=== PATIENT | male | born 1960 | race Caucasian/White ===

== ENCOUNTER 2018-10-16 13:51 | Emergency (ER) | payer OTHER ==
[~2018-10-16] VITALS: Ht 182.9 cm; Wt 115.9 kg
[~2018-10-16 13:51] MED LIST: ADV250 IH; ALBU8HFA4 IH; AMOX-462 PO; BECL8.7A5 IH; CLON1 PO; MONT10TA24 PO; OMEP20CA4 PO; PARO10TA89 PO; PRAV20TA4 PO; QUET400T PO; SALMH IH; [UNRECOGNIZED DRUG - CODE] PO
[2018-10-16 13:53] VITALS: BP 130/90
[2018-10-16 14:05] LABS: GLUCOSE,POINT OF CARE 108 MG/DL (70-110)
== END 2018-10-16 16:13 | disposition left against medical advice (07) ==
LOC: EMS 13:53
DX: R42 Dizziness and giddiness (principal); Z53.21 Procedure and treatment not carried out due to patient leaving prior to being seen by health care provider

== ENCOUNTER 2019-04-24 11:58 | Emergency (ER) | payer OTHER ==
[~2019-04-24] VITALS: Ht 182.9 cm; Wt 120.5 kg
[~2019-04-24 11:58] MED LIST changes: -CLON1 PO; +CLON1TAB13 PO
[2019-04-24 14:33] VITALS: BP 166/99
== END 2019-04-24 14:42 | disposition home or self-care (01) ==
LOC: EMS 11:58
DX: S93.691A Other sprain of right foot, initial encounter (principal); E11.9 Type 2 diabetes mellitus without complications; I10 Essential (primary) hypertension; F32.9 Major depressive disorder, single episode, unspecified; Z79.899 Other long term (current) drug therapy; Z88.2 Allergy status to sulfonamides; W22.8XXA Striking against or struck by other objects, initial encounter; Y93.89 Activity, other specified; Y92.89 Other specified places as the place of occurrence of the external cause; Y99.8 Other external cause status

== ENCOUNTER 2020-12-26 19:41 | Emergency (ER) | payer OTHER ==
[~2020-12-26] VITALS: Ht 182.9 cm; Wt 111.4 kg
[~2020-12-26 19:41] MED LIST changes: -AMOX-462 PO; +CLON-595 PO; -CLON1TAB13 PO; -MONT10TA24 PO; +MONT10TA32 PO
[2020-12-26] MEDS ORDERED: CYCL10 PO (19:47)
[2020-12-26] MEDS ORDERED: ATOR10TA84 PO (19:47)
[2020-12-27] MEDS ORDERED: MORPHINE SULFATE 4 MG/ML SYRINGE IM ONE (00:15)
[2020-12-27 03:16] VITALS: BP 139/88
== END 2020-12-27 04:00 | disposition home or self-care (01) ==
LOC: EMS 19:43
DX: M54.5 Low back pain (principal); G89.29 Other chronic pain; K59.00 Constipation, unspecified; M19.90 Unspecified osteoarthritis, unspecified site; J44.9 Chronic obstructive pulmonary disease, unspecified; F32.9 Major depressive disorder, single episode, unspecified; E11.9 Type 2 diabetes mellitus without complications; I10 Essential (primary) hypertension; F17.210 Nicotine dependence, cigarettes, uncomplicated; Z88.1 Allergy status to other antibiotic agents
CPT/HCPCS: 72100; 96372; 99285; J2270; 99283

== ENCOUNTER 2021-06-26 16:20 | Inpatient (IN) | payer OTHER ==
[~2021-06-26] VITALS: Ht 175.3 cm; Wt 114.1 kg
[~2021-06-26 16:20] MED LIST changes: +ATOR10TA84 PO; +CYCL10TA17 PO; +MONT-40 PO; -MONT10TA32 PO; +SALM50DI2 IH; -SALMH IH
[2021-06-26] MEDS ORDERED: SODIUM CHLORIDE 0.9% 1,000 ML IV ONE ×2 (17:00→19:30)
[2021-06-26 17:20] LABS: ABG BASE EXCESS -2.5 mmol/L (-2.0-3.0); ABG HCO3 22.5 mmol/L (22.0-26.0); ABG METHEMOGLOBIN 0.1 % (0.0-1.5); ABG OXYGEN CONTENT 21.4 mL/dL (15.0-23.0); ABG OXYGEN SATURATION 91.9 % (95.0-98.0); ABG OXYHEMOGLOBIN 85.3 % (94.0-100.0); ABG PCO2 41 mmHg (35-45); ABG PH 7.369 (7.35-7.450); ABG TOTAL HEMOGLOBIN 17.9 G/dL (12.0-18.0); PO2, ARTERIAL BG 61.4 mmHg (79.0-87.0); SOURCE, BLOOD GAS ARTERIAL; TEMPERATURE, FAHRENHEIT, BG 99.4 FAHREN (96.0-98.6)
[2021-06-26 17:21] LABS: ABG CARBOXYHEMOGLOBIN 7.1 % (0.0-1.5); O2 DEVICE,BLOOD GAS VENTI MASK (ROOM AIR); SITE, BLOOD GAS RT RADIAL
[2021-06-26 17:37] LABS: BASOPHILS % (AUTO) 0.2 % (0.0-2.0); EOSINOPHILS % (AUTO) 0.2 % (1.0-6.0); HEMATOCRIT 49.8 % (41-53); HEMOGLOBIN 17.1 g/dL (13.5-17.5); LYMPHOCYTES # (AUTO) 1.8 K/uL (1.0-4.8); LYMPHOCYTES % (AUTO) 13.7 % (22.0-44.0); MEAN CORPUSCULAR HEMOGLOBIN 31.4 pg (26.0-34.0); MEAN CORPUSCULAR HGB CONC 34.3 G/dL (31.0-37.0); MEAN CORPUSCULAR VOLUME 92 fL (80-100); MONOCYTES # (AUTO) 2.1 K/uL (0.1-1.0); MONOCYTES % (AUTO) 16.7 % (2.0-9.0); NEUTROPHILS # (AUTO) 8.9 K/uL (1.8-7.7); NEUTROPHILS % (AUTO) 69.2 % (40.0-70.0); PLATELET COUNT (AUTO) 207 K/uL (150-450); RED BLOOD CELL COUNT(AUTO) 5.44 MIL/uL (4.50-5.90); RED CELL DISTRIBUTION WIDTH 13.7 % (11.5-14.5)
[2021-06-26 17:44] LABS: COVID AG,FIA SOURCE NASOPHARYNGEAL
[2021-06-26 17:49] LABS: ANION GAP 11 mmol/L (8-16); CALCIUM, TOTAL 8.1 mg/dL (8.8-10.5); CARBON DIOXIDE 26 mmol/L (22-29); CHLORIDE 103 mmol/L (98-107); CREATININE 2.13 mg/dL (0.60-1.30); GLOMERULAR FILTR. RATE CALC 32 mL/min (>60); GLUCOSE,RANDOM 212 mg/dL (70-110); SODIUM SERUM 140 mmol/L (136-145); UREA NITROGEN, BLOOD 28 mg/dL (7-18)
[2021-06-26 17:53] LABS: INR 1.1 (0.9-1.1); PROTHROMBIN TIME 11.2 SEC (9.4-11.6)
[2021-06-26 18:12] LABS: SALICYLATE 0.9 mg/dL (2.8-20.0)
[2021-06-26 18:25] LABS: AMMONIA 16 umol/L (11-32)
[2021-06-26 18:29] LABS: ALANINE AMINOTRANSFERASE 31 U/L (12-78); ALBUMIN 3.4 g/dL (3.4-5.0); ALKALINE PHOSPHATASE 81 U/L (46-116); ASPARTATE AMINOTRANSFERASE 15 U/L (15-37); BILIRUBIN,TOTAL 1.5 mg/dL (0.1-1.0); CREATINE KINASE, TOTAL ONLY 275 U/L (39-308); TOTAL PROTEIN, SERUM 6.4 g/dL (6.4-8.2)
[2021-06-26 18:40] LABS: APPEARANCE,URINE CLEAR (CLEAR); BILIRUBIN,URINE NEGATIVE (NEGATIVE); GLUCOSE, URINE (UA) >=1000 mg/dL (NEGATIVE); KETONES,URINE NEGATIVE (NEGATIVE); LEUKOCYTE ESTERASE ,URINE NEGATIVE (NEGATIVE); NITRATE,URINE NEGATIVE (NEGATIVE); OCCULT BLOOD,URINE NEGATIVE (NEGATIVE); PH,URINE 5.5 (5.0-8.0); PROTEIN,URINE SEE CONFIRM (NEGATIVE); UROBILINOGEN,URINE 0.2 mg/dL (<=1.0)
[2021-06-26 18:44] LABS: AMPHET/METH SCREEN,URINE NEGATIVE (NEGATIVE); BARBITURATE SCREEN, URINE NEGATIVE (NEGATIVE); BENZODIAZEPINES SCREEN,URINE NEGATIVE (NEGATIVE); CANNABINOID SCREEN,URINE NEGATIVE (NEGATIVE); COCAINE SCREEN,URINE NEGATIVE (NEGATIVE); METHADONE SCREEN, URINE NEGATIVE (NEGATIVE); OPIATE SCREEN,URINE NEGATIVE (NEGATIVE)
[2021-06-26 18:45] LABS: PHENCYCLIDINE SCREEN,URINE NEGATIVE (NEGATIVE)
[2021-06-26 18:46] LABS: SULFOSALICYLIC ACID,URINE 2+ (Negative)
[2021-06-26 18:47] LABS: BACTERIA,URINE None Seen /HPF (None Seen); RBC,URINE None Seen /HPF (0-2); SQUAMOUS EPITHELIAL CELL,UR Few /LPF (None Seen); WBC,URINE 0-2 /HPF (0-5)
[2021-06-26 18:57] LABS: ACETAMINOPHEN < 2 mcg/mL (10-30)
[2021-06-26] MEDS ORDERED: LEVOFLOXACIN 500 MG/D5% WATER 100 ML IV ONE (19:00)
[2021-06-26] MEDS ORDERED: PIPERACILLIN/TAZO 3.375 GM/D5W 50 ML IV ONE (19:00)
[2021-06-26] MEDS ORDERED: DEXTROSE 50%-WATER 25 GM/50 ML SYRINGE IVP PRN (19:30)
[2021-06-26] MEDS ORDERED: ACETAMINOPHEN 325 MG TABLET PO PRN (19:30)
[2021-06-26] MEDS ORDERED: BISACODYL 10 MG RECTAL RECTAL SUPPOSITORY PR PRN (19:30)
[2021-06-26] MEDS ORDERED: ONDANSETRON HCL 4 MG/2 ML VIAL IVP PRN (19:30)
[2021-06-26] MEDS: PANTOPRAZOLE SODIUM 40 MG/VIAL IVP SCH (19:39)
[2021-06-26] MEDS: MethylPREDNISolone SOD SUCC 125 MG/2 ML VIAL IVP SCH (19:43)
[2021-06-27] VITALS (14 sets, daily range): BP systolic 108–129; BP diastolic 75–87
[2021-06-27] MEDS: MethylPREDNISolone SOD SUCC 125 MG/2 ML VIAL IVP SCH ×4 (01:06→18:00)
[2021-06-27] MEDS: HEPARIN SODIUM,PORCINE 5,000 UNITS/ML VIAL SQ SCH ×3 (01:06→17:58)
[2021-06-27 01:11] LABS: GLUCOSE,POINT OF CARE 192 MG/DL (70-110)
[2021-06-27] MEDS: PIPERACILLIN/TAZO 3.375 GM/D5W 50 ML IV SCH ×4 (05:35→23:19)
[2021-06-27 05:37] LABS: EOSINOPHILS % (AUTO) 0 % (1.0-6.0); HEMATOCRIT 52.4 % (41-53); HEMOGLOBIN 17.9 g/dL (13.5-17.5); LYMPHOCYTES # (AUTO) 0.5 K/uL (1.0-4.8); LYMPHOCYTES % (AUTO) 2.6 % (22.0-44.0); MEAN CORPUSCULAR HEMOGLOBIN 31.1 pg (26.0-34.0); MEAN CORPUSCULAR HGB CONC 34.1 G/dL (31.0-37.0); MEAN CORPUSCULAR VOLUME 91 fL (80-100); MONOCYTES # (AUTO) 0.5 K/uL (0.1-1.0); MONOCYTES % (AUTO) 2.4 % (2.0-9.0); NEUTROPHILS # (AUTO) 18.3 K/uL (1.8-7.7); PLATELET COUNT (AUTO) 191 K/uL (150-450); RED BLOOD CELL COUNT(AUTO) 5.74 MIL/uL (4.50-5.90); RED CELL DISTRIBUTION WIDTH 13.6 % (11.5-14.5)
[2021-06-27 05:40] LABS: ANION GAP 8 mmol/L (8-16); CALCIUM, TOTAL 8.7 mg/dL (8.8-10.5); CARBON DIOXIDE 24 mmol/L (22-29); CHLORIDE 107 mmol/L (98-107); CREATININE 1.16 mg/dL (0.60-1.30); GLOMERULAR FILTR. RATE CALC > 60 mL/min (>60); GLUCOSE,RANDOM 212 mg/dL (70-110); POTASSIUM 4.3 mmol/L (3.5-5.1); SODIUM SERUM 139 mmol/L (136-145); UREA NITROGEN, BLOOD 33 mg/dL (7-18)
[2021-06-27] MEDS: INSULIN LISPRO 100 UNITS/ML SQ PRN ×3 (06:54→18:12)
[2021-06-27 07:06] LABS: GLUCOSE,POINT OF CARE 190 MG/DL (70-110)
[2021-06-27] MEDS: PANTOPRAZOLE SODIUM 40 MG/VIAL IVP SCH (07:44)
[2021-06-27 12:26] LABS: GLUCOSE,POINT OF CARE 172 MG/DL (70-110)
[2021-06-27 18:26] LABS: GLUCOSE,POINT OF CARE 188 MG/DL (70-110)
[2021-06-27 21:01] LABS: GLUCOSE,POINT OF CARE 274 MG/DL (70-110)
[2021-06-28] VITALS (9 sets, daily range): BP systolic 92–139; BP diastolic 49–86
[2021-06-28] MEDS: HEPARIN SODIUM,PORCINE 5,000 UNITS/ML VIAL SQ SCH ×3 (00:41→17:12)
[2021-06-28] MEDS: MethylPREDNISolone SOD SUCC 125 MG/2 ML VIAL IVP SCH ×4 (00:42→17:12)
[2021-06-28] MEDS: PIPERACILLIN/TAZO 3.375 GM/D5W 50 ML IV SCH ×4 (05:10→21:14)
[2021-06-28] MEDS: INSULIN LISPRO 100 UNITS/ML SQ PRN ×5 (06:33→21:12)
[2021-06-28 06:37] LABS: GLUCOSE,POINT OF CARE 201 MG/DL (70-110)
[2021-06-28] MEDS: PANTOPRAZOLE SODIUM 40 MG/VIAL IVP SCH (08:19)
[2021-06-28 11:21] LABS: GLUCOSE,POINT OF CARE 235 MG/DL (70-110)
[2021-06-28] MEDS ORDERED: QUEtiapine FUMARATE 100 MG TABLET PO PRN (12:15)
[2021-06-28 20:12] LABS: GLUCOMETER DEV NAME(LOC) 5S.2B; GLUCOSE,POINT OF CARE 244 MG/DL (70-110)
[2021-06-28 20:12] LABS: GLUCOMETER DEV NAME(LOC) 5S.2B; GLUCOSE,POINT OF CARE 233 MG/DL (70-110)
[2021-06-28] MEDS: QUEtiapine FUMARATE 200 MG TABLET PO SCH (21:11)
[2021-06-28 21:41] LABS: GLUCOMETER DEV NAME(LOC) 5S.2B; GLUCOSE,POINT OF CARE 359 MG/DL (70-110)
[2021-06-29] MEDS: HEPARIN SODIUM,PORCINE 5,000 UNITS/ML VIAL SQ SCH ×3 (00:37→16:36)
[2021-06-29] MEDS: MethylPREDNISolone SOD SUCC 125 MG/2 ML VIAL IVP SCH ×2 (00:37→05:06)
[2021-06-29 01:06] VITALS: BP 129/71
[2021-06-29 04:34] VITALS: BP 108/65
[2021-06-29] MEDS: PIPERACILLIN/TAZO 3.375 GM/D5W 50 ML IV SCH ×4 (05:06→21:58)
[2021-06-29] MEDS: INSULIN LISPRO 100 UNITS/ML SQ PRN ×5 (05:50→21:54)
[2021-06-29 06:46] LABS: GLUCOMETER DEV NAME(LOC) 5S.2B; GLUCOSE,POINT OF CARE 253 MG/DL (70-110)
[2021-06-29] MEDS: PANTOPRAZOLE SODIUM 40 MG/VIAL IVP SCH (08:03)
[2021-06-29 08:06] VITALS: BP 128/78
[2021-06-29 08:27] LABS: GLUCOMETER DEV NAME(LOC) 5S.1; GLUCOSE,POINT OF CARE 222 MG/DL (70-110)
[2021-06-29 11:23] VITALS: BP 113/69
[2021-06-29] MEDS: PredniSONE 20 MG TABLET PO SCH (12:20)
[2021-06-29 12:31] LABS: GLUCOMETER DEV NAME(LOC) 5S.2B; GLUCOSE,POINT OF CARE 210 MG/DL (70-110)
[2021-06-29 15:40] VITALS: BP 136/86
[2021-06-29 17:26] LABS: GLUCOMETER DEV NAME(LOC) 5N.1C; GLUCOSE,POINT OF CARE 234 MG/DL (70-110)
[2021-06-29 20:00] VITALS: BP 152/88
[2021-06-29 20:26] LABS: GLUCOMETER DEV NAME(LOC) 5S.2B; GLUCOSE,POINT OF CARE 215 MG/DL (70-110)
[2021-06-29] MEDS: QUEtiapine FUMARATE 200 MG TABLET PO SCH (21:52)
[2021-06-30 00:05] VITALS: BP 140/86
[2021-06-30] MEDS: HEPARIN SODIUM,PORCINE 5,000 UNITS/ML VIAL SQ SCH ×2 (01:39→08:51)
[2021-06-30 04:15] VITALS: BP 132/60
[2021-06-30] MEDS: PIPERACILLIN/TAZO 3.375 GM/D5W 50 ML IV SCH ×2 (04:41→11:59)
[2021-06-30] MEDS: INSULIN LISPRO 100 UNITS/ML SQ PRN ×2 (06:25→12:30)
[2021-06-30 06:27] LABS: GLUCOMETER DEV NAME(LOC) 5S.1; GLUCOSE,POINT OF CARE 255 MG/DL (70-110)
[2021-06-30 07:04] VITALS: BP 127/67
[2021-06-30] MEDS: PANTOPRAZOLE SODIUM 40 MG/VIAL IVP SCH (08:51)
[2021-06-30] MEDS: PredniSONE 20 MG TABLET PO SCH (08:51)
[2021-06-30 12:10] VITALS: BP 138/92
[2021-06-30] MEDS ORDERED: PRED20 PO (12:29)
[2021-06-30] MEDS ORDERED: LEVO-72 PO (12:29)
[2021-06-30 12:51] LABS: GLUCOMETER DEV NAME(LOC) 5N.1C; GLUCOSE,POINT OF CARE 203 MG/DL (70-110)
== END 2021-06-30 14:10 | disposition home or self-care (01) | DRG 817 ==
LOC: EMS 16:20 → ICU 19:29 → 5S 06-28 08:40 → 5N 06-28 23:00
PROVIDERS: ADMIT Internal Medicine; ATTEND Internal Medicine
DX: T40.2X2A Poisoning by other opioids, intentional self-harm, initial encounter (principal); J96.01 Acute respiratory failure with hypoxia; J69.0 Pneumonitis due to inhalation of food and vomit; G92.8 Other toxic encephalopathy; N17.9 Acute kidney failure, unspecified; J44.1 Chronic obstructive pulmonary disease with (acute) exacerbation; E11.9 Type 2 diabetes mellitus without complications; J44.9 Chronic obstructive pulmonary disease, unspecified; E66.01 Morbid (severe) obesity due to excess calories; Z68.36 Body mass index [BMI] 36.0-36.9, adult; G89.29 Other chronic pain; I10 Essential (primary) hypertension; F17.200 Nicotine dependence, unspecified, uncomplicated; Z20.822 Contact with and (suspected) exposure to COVID-19; F99 Mental disorder, not otherwise specified; F20.9 Schizophrenia, unspecified; Z79.4 Long term (current) use of insulin; Z79.51 Long term (current) use of inhaled steroids; Z79.899 Other long term (current) drug therapy; Z87.820 Personal history of traumatic brain injury; Z88.2 Allergy status to sulfonamides; Z68.37 Body mass index [BMI] 37.0-37.9, adult; Y92.89 Other specified places as the place of occurrence of the external cause
CPT/HCPCS: 36600; 51702; 70450; 71045; 71250; 80048; 80053; 81001; 81002; 82140; 82550; 82805; 82962; 84484; 85025; 85610; 87040; 87081; 93005; 93306; 99291; C9113; G0378; G0480; G0481; J1644; J1956; J2543; J2930; J7030; 36415-L1; 36415-TC; U0003

== ENCOUNTER 2021-09-27 19:57 | Emergency (ER) | payer OTHER ==
[~2021-09-27] VITALS: Ht 182.9 cm; Wt 116.0 kg
[~2021-09-27 19:57] MED LIST changes: -ADV250 IH; -ATOR10TA84 PO; -CLON-595 PO; -CYCL10TA17 PO; +LEVO-72 PO; +PRED-554 PO; -SALM50DI2 IH; -[UNRECOGNIZED DRUG - CODE] PO
[2021-09-27] MEDS ORDERED: KETOROLAC TROMETHAMINE 30 MG/ML VIAL IM ONE (20:45)
[2021-09-27 21:23] VITALS: BP 166/96
== END 2021-09-27 21:40 | disposition home or self-care (01) ==
LOC: EMS 19:59
DX: M54.50 Low back pain, unspecified (principal); G89.29 Other chronic pain; J44.9 Chronic obstructive pulmonary disease, unspecified; F32.A Depression, unspecified; E11.9 Type 2 diabetes mellitus without complications; I10 Essential (primary) hypertension; Z86.69 Personal history of other diseases of the nervous system and sense organs; Z98.890 Other specified postprocedural states; Z88.2 Allergy status to sulfonamides
CPT/HCPCS: 96372; 99283; J1885

== ENCOUNTER 2021-12-23 09:40 | Emergency (ER) | payer OTHER ==
[~2021-12-23] VITALS: Ht 182.9 cm; Wt 116.4 kg
[2021-12-23] MEDS ORDERED: DULA0.75 SQ (09:58)
[2021-12-23] MEDS ORDERED: METF-1211 PO (09:58)
[2021-12-23] MEDS ORDERED: SODIUM CHLORIDE 0.9% 1,000 ML IV ONE ×2 (10:00→11:00)
[2021-12-23 10:24] LABS: EOSINOPHILS % (AUTO) 0.2 % (1.0-6.0); HEMATOCRIT 47.8 % (41-53); HEMOGLOBIN 16.4 g/dL (13.5-17.5); LYMPHOCYTES # (AUTO) 1.9 K/uL (1.0-4.8); LYMPHOCYTES % (AUTO) 14.8 % (22.0-44.0); MEAN CORPUSCULAR HEMOGLOBIN 31.2 pg (26.0-34.0); MEAN CORPUSCULAR HGB CONC 34.4 G/dL (31.0-37.0); MEAN CORPUSCULAR VOLUME 91 fL (80-100); MONOCYTES # (AUTO) 1.2 K/uL (0.1-1.0); MONOCYTES % (AUTO) 9.5 % (2.0-9.0); NEUTROPHILS # (AUTO) 9.4 K/uL (1.8-7.7); NEUTROPHILS % (AUTO) 74.5 % (40.0-70.0); PLATELET COUNT (AUTO) 250 K/uL (150-450); RED BLOOD CELL COUNT(AUTO) 5.28 MIL/uL (4.50-5.90); RED CELL DISTRIBUTION WIDTH 13.1 % (11.5-14.5)
[2021-12-23 10:41] LABS: ANION GAP 10 mmol/L (8-16); CARBON DIOXIDE 25 mmol/L (22-29); CHLORIDE 100 mmol/L (98-107); GLOMERULAR FILTR. RATE CALC > 60 mL/min (>60); GLUCOSE,RANDOM 295 mg/dL (70-110); POTASSIUM 4.1 mmol/L (3.5-5.1); SODIUM SERUM 135 mmol/L (136-145); UREA NITROGEN, BLOOD 19 mg/dL (7-18)
[2021-12-23 10:42] LABS: ACETONE,BLOOD NEGATIVE (NEGATIVE)
[2021-12-23] MEDS ORDERED: INSULIN REGULAR, HUMAN 100 UNITS/ML IVP ONE (10:45)
[2021-12-23 10:47] LABS: ALANINE AMINOTRANSFERASE 29 U/L (12-78); ALBUMIN 3.3 g/dL (3.4-5.0); ALKALINE PHOSPHATASE 93 U/L (46-116); ASPARTATE AMINOTRANSFERASE 9 U/L (15-37); BILIRUBIN,TOTAL 0.4 mg/dL (0.1-1.0); TOTAL PROTEIN, SERUM 6.3 g/dL (6.4-8.2)
[2021-12-23 11:51] VITALS: BP 128/71
[2021-12-23 12:03] LABS: APPEARANCE,URINE CLEAR (CLEAR); BILIRUBIN,URINE NEGATIVE (NEGATIVE); GLUCOSE, URINE (UA) >=1000 mg/dL (NEGATIVE); KETONES,URINE NEGATIVE (NEGATIVE); LEUKOCYTE ESTERASE ,URINE NEGATIVE (NEGATIVE); NITRATE,URINE NEGATIVE (NEGATIVE); OCCULT BLOOD,URINE NEGATIVE (NEGATIVE); PROTEIN,URINE NEGATIVE (NEGATIVE); SPECIFIC GRAVITIY, URINE 1.037 (1.003-1.030); UROBILINOGEN,URINE <=1.0 mg/dL (<=1.0)
[2021-12-23 12:06] LABS: GLUCOSE,POINT OF CARE 187 MG/DL (70-110)
[2021-12-23 12:14] LABS: BACTERIA,URINE None Seen /HPF (None Seen); RBC,URINE None Seen /HPF (0-2); SQUAMOUS EPITHELIAL CELL,UR None Seen /LPF (None Seen); WBC,URINE None Seen /HPF (0-5)
== END 2021-12-23 13:37 | disposition home or self-care (01) ==
LOC: EMS 09:41
DX: E11.65 Type 2 diabetes mellitus with hyperglycemia (principal); F31.9 Bipolar disorder, unspecified; F10.20 Alcohol dependence, uncomplicated; F17.210 Nicotine dependence, cigarettes, uncomplicated; I10 Essential (primary) hypertension; J44.9 Chronic obstructive pulmonary disease, unspecified; Z88.2 Allergy status to sulfonamides
CPT/HCPCS: 99284; 96374; 71045; 96361; 80053; 81001; 82009; 82962; 85025; 36415; J1815; J7030

== ENCOUNTER 2021-12-29 07:26 | Emergency (ER) | payer OTHER ==
[~2021-12-29] VITALS: Ht 185.4 cm; Wt 115.9 kg
[~2021-12-29 07:26] MED LIST changes: +DULA0.75 SQ; +METF-1211 PO
[2021-12-29 07:58] LABS: BASOPHILS % (AUTO) 0.6 % (0.0-2.0); EOSINOPHILS % (AUTO) 2.3 % (1.0-6.0); HEMATOCRIT 54.2 % (41-53); HEMOGLOBIN 18.5 g/dL (13.5-17.5); LYMPHOCYTES # (AUTO) 2.3 K/uL (1.0-4.8); LYMPHOCYTES % (AUTO) 24.9 % (22.0-44.0); MEAN CORPUSCULAR HEMOGLOBIN 31.6 pg (26.0-34.0); MEAN CORPUSCULAR HGB CONC 34.2 G/dL (31.0-37.0); MEAN CORPUSCULAR VOLUME 92 fL (80-100); MONOCYTES # (AUTO) 1.1 K/uL (0.1-1.0); MONOCYTES % (AUTO) 12.1 % (2.0-9.0); NEUTROPHILS # (AUTO) 5.5 K/uL (1.8-7.7); NEUTROPHILS % (AUTO) 60.1 % (40.0-70.0); PLATELET COUNT (AUTO) 215 K/uL (150-450); RED BLOOD CELL COUNT(AUTO) 5.86 MIL/uL (4.50-5.90); RED CELL DISTRIBUTION WIDTH 13.4 % (11.5-14.5)
[2021-12-29] MEDS ORDERED: MORPHINE SULFATE 4 MG/ML SYRINGE IVP ONE (08:00)
[2021-12-29] MEDS ORDERED: ONDANSETRON HCL 4 MG/2 ML VIAL IVP ONE (08:00)
[2021-12-29] MEDS ORDERED: SODIUM CHLORIDE 0.9% 1,000 ML IV ONE (08:00)
[2021-12-29] MEDS ORDERED: DIPHENOXYLATE/ATROP 2.5-0.025 MG TABLET PO ONE (08:00)
[2021-12-29 08:09] LABS: ANION GAP 10 mmol/L (8-16); CALCIUM, TOTAL 8.4 mg/dL (8.8-10.5); CARBON DIOXIDE 23 mmol/L (22-29); CHLORIDE 101 mmol/L (98-107); CREATININE 0.79 mg/dL (0.60-1.30); GLOMERULAR FILTR. RATE CALC > 60 mL/min (>60); GLUCOSE,RANDOM 126 mg/dL (70-110); POTASSIUM 4.4 mmol/L (3.5-5.1); SODIUM SERUM 134 mmol/L (136-145); UREA NITROGEN, BLOOD 25 mg/dL (7-18)
[2021-12-29 08:14] LABS: ALANINE AMINOTRANSFERASE 29 U/L (12-78); ALBUMIN 3.8 g/dL (3.4-5.0); ALKALINE PHOSPHATASE 111 U/L (46-116); ASPARTATE AMINOTRANSFERASE 15 U/L (15-37); LIPASE 111 U/L (73-393); TOTAL PROTEIN, SERUM 7.1 g/dL (6.4-8.2)
[2021-12-29 10:00] VITALS: BP 154/52
[2021-12-29] MEDS ORDERED: ACET-66 PO (10:10)
[2021-12-29] MEDS ORDERED: DIPH-654 PO (10:10)
== END 2021-12-29 11:23 | disposition home or self-care (01) ==
LOC: EMS 07:26
DX: K52.9 Noninfective gastroenteritis and colitis, unspecified (principal); R10.31 Right lower quadrant pain; J44.9 Chronic obstructive pulmonary disease, unspecified; F32.A Depression, unspecified; E11.9 Type 2 diabetes mellitus without complications; I10 Essential (primary) hypertension; Z86.69 Personal history of other diseases of the nervous system and sense organs; Z98.890 Other specified postprocedural states; Z88.2 Allergy status to sulfonamides; Z20.822 Contact with and (suspected) exposure to COVID-19
CPT/HCPCS: 99285; 74176; 96374; 96361; 96375; 80053; 82962; 83690; 84484; 85025; 36415; 93005; J2270; J2405; J7030

== ENCOUNTER 2024-06-13 13:32 | Inpatient (IN) | payer OTHER ==
[~2024-06-13] VITALS: Ht 180.3 cm; Wt 122.7 kg
[~2024-06-13 13:32] MED LIST changes: +ALBU18HF12 IH; -ALBU8HFA4 IH; +ARIP400S3 IM; +ATOR40TA71 PO; -BECL8.7A5 IH; +DOCU100C33 PO; -DULA0.75 SQ; +DULA4.5P SQ; +FLUT1BLS3 IH; -LEVO-72 PO; -METF-1211 PO; -OMEP20CA4 PO; -PARO10TA89 PO; -PRAV20TA4 PO; +PRAZ2 PO; -PRED-554 PO
[2024-06-13 14:38] LABS: COVID AG,FIA SOURCE NASAL SWAB
[2024-06-13 14:39] LABS: BASOPHILS % (AUTO) 0.2 % (0.0-2.0); EOSINOPHILS % (AUTO) 0.2 % (1.0-6.0); LYMPHOCYTES # (AUTO) 0.4 K/uL (1.0-4.8); LYMPHOCYTES % (AUTO) 2.8 % (22.0-44.0); MEAN CORPUSCULAR HEMOGLOBIN 31.8 pg (26.0-34.0); MEAN CORPUSCULAR VOLUME 93 fL (80-100); MONOCYTES # (AUTO) 0.9 K/uL (0.1-1.0); MONOCYTES % (AUTO) 6.4 % (2.0-9.0); PLATELET COUNT (AUTO) 226 K/uL (150-450); RED BLOOD CELL COUNT(AUTO) 6.01 MIL/uL (4.50-5.90); RED CELL DISTRIBUTION WIDTH 13.3 % (11.5-14.5); WHITE BLOOD COUNT (AUTO) 14.4 K/uL (4.5-11.0)
[2024-06-13] MEDS: ONDANSETRON HCL 4 MG/2 ML VIAL IVP ONE (14:41)
[2024-06-13] MEDS: FAMOTIDINE 20 MG/2 ML VIAL IVP ONE (14:41)
[2024-06-13] MEDS: SODIUM CHLORIDE 0.9% 1,000 ML IV ONE ×2 (14:41→15:06)
[2024-06-13 14:56] LABS: SARS-COV2 (COVID) ANTIGEN,FIA Negative (Negative)
[2024-06-13 14:57] LABS: INFLUENZA TYPE A NEGATIVE FOR TYPE A (NEGATIVE); INFLUENZA TYPE B NEGATIVE FOR TYPE B (NEGATIVE)
[2024-06-13 14:57] LABS: HEMATOCRIT 56.1 % (41-53); NEUTROPHILS % (AUTO) 90.4 % (40.0-70.0)
[2024-06-13 14:58] LABS: HEMOGLOBIN 19.1 g/dL (13.5-17.5)
[2024-06-13 15:06] LABS: ALANINE AMINOTRANSFERASE 34 U/L (12-78); ALBUMIN 3.7 g/dL (3.4-5.0); ALKALINE PHOSPHATASE 126 U/L (46-116); ASPARTATE AMINOTRANSFERASE 17 U/L (15-37); CALCIUM, TOTAL 8.3 mg/dL (8.8-10.5); CARBON DIOXIDE 22 mmol/L (22-29); CREATININE 1.13 mg/dL (0.60-1.30); GLOMERULAR FILTR. RATE CALC > 60 mL/min (>60); GLUCOSE,RANDOM 241 mg/dL (70-110); LIPASE 45 U/L (16-77); PHOSPHORUS 3.1 mg/dL (2.5-4.9); TOTAL PROTEIN, SERUM 6.9 g/dL (6.4-8.2); TROPONIN I-HIGH SENSITIVITY 14 ng/L (<76); UREA NITROGEN, BLOOD 24 mg/dL (7-18)
[2024-06-13] MEDS: ACETAMINOPHEN 1000 MG/ISO-OSM 100 ML IV ONE (15:06)
[2024-06-13 15:12] LABS: ANION GAP 13 mmol/L (8-16); CHLORIDE 99 mmol/L (98-107); POTASSIUM 3.7 mmol/L (3.5-5.1); SODIUM SERUM 134 mmol/L (136-145)
[2024-06-13] MEDS: CefTRIAXone 1 GM/DEXTROSE 50 ML IV ONE (15:26)
[2024-06-13] MEDS: AZITHROMYCIN 500 MG/NS 250 ML IV ONE (15:26)
[2024-06-13 15:44] LABS: PROTHROMBIN TIME 11.3 SEC (9.4-11.6)
[2024-06-13] MEDS: IPRATROPIUM BROMIDE 0.5 MG/2.5 ML NEB SOLUTION NEB ONE (15:48)
[2024-06-13] MEDS: ALBUTEROL SULFATE 2.5 MG/0.5 ML NEB SOLUTION NEB ONE (15:48)
[2024-06-13 15:49] VITALS: PULSE 116; RESP 16; O2SAT 96
[2024-06-13 15:49] LABS: LACTIC ACID 2.4 mmol/L (0.4-2.0)
[2024-06-13 15:50] VITALS: PULSE 116; RESP 16; O2SAT 96
[2024-06-13] MEDS: MAGNESIUM SULFATE 1 GM in DEXTROSE 5%-WATER 50 ML IV ONE (15:55)
[2024-06-13] MEDS: HEPARIN SODIUM,PORCINE 5,000 UNITS/ML VIAL SQ SCH (16:18)
[2024-06-13] MEDS ORDERED: MAGNESIUM SULFATE 4 GM/WATER 100 ML IV PRN (18:45)
[2024-06-13] MEDS ORDERED: MAGNESIUM OXIDE 400 MG TABLET PO PRN (18:45)
[2024-06-13] MEDS ORDERED: POTASSIUM CHLORIDE 20 MEQ ER TABLET PO PRN (18:45)
[2024-06-13] MEDS: RINGERS SOLUTION,LACTATED 500 ML IV ONE (18:45)
[2024-06-13] MEDS ORDERED: DEXTROSE 50%-WATER 25 GM/50 ML SYRINGE IVP PRN (18:45)
[2024-06-13] MEDS ORDERED: POTASSIUM CHL 10 MEQ/WATER 50 ML IV PRN (18:45)
[2024-06-13] MEDS: ONDANSETRON HCL 4 MG/2 ML VIAL IVP PRN (19:47)
[2024-06-13] MEDS: DOCUSATE SODIUM 100 MG CAPSULE PO SCH (21:00)
[2024-06-13 21:13] VITALS: BP 116/62; PULSE 102; RESP 20; TEMP 100; O2SAT 98
[2024-06-13 22:12] LABS: TROPONIN I-HIGH SENSITIVITY 12 ng/L (<76)
[2024-06-13] MEDS: ACETAMINOPHEN 325 MG TABLET PO PRN (22:23)
[2024-06-14] VITALS: BP 114/58; PULSE 105; RESP 22; TEMP 99.5; O2SAT 93
[2024-06-14] MEDS ORDERED: SODIUM CHLORIDE 0.9% 250 ML IV ONE (00:08)
[2024-06-14] MEDS: MAGNESIUM SULFATE 2 GM/WATER 50 ML IV PRN (00:14)
[2024-06-14] MEDS: INSULIN LISPRO 100 UNITS/ML SQ PRN (00:27)
[2024-06-14 02:50] LABS: GLUCOMETER DEV NAME(LOC) 5S.2D; GLUCOSE,POINT OF CARE 188 MG/DL (70-110)
[2024-06-14 04:42] VITALS: BP 105/58; PULSE 99; RESP 19; TEMP 98.3; O2SAT 97
[2024-06-14 06:42] LABS: APPEARANCE,URINE CLEAR (CLEAR); BILIRUBIN,URINE NEGATIVE (NEGATIVE); COLOR,URINE YELLOW (YELLOW); GLUCOSE, URINE (UA) >=1000 mg/dL (NEGATIVE); KETONES,URINE NEGATIVE (NEGATIVE); LEUKOCYTE ESTERASE ,URINE NEGATIVE (NEGATIVE); NITRATE,URINE NEGATIVE (NEGATIVE); OCCULT BLOOD,URINE NEGATIVE (NEGATIVE); PH,URINE 5.5 (5.0-8.0); PROTEIN,URINE TRACE mg/dL (NEGATIVE); SPECIFIC GRAVITIY, URINE 1.045 (1.003-1.030); UROBILINOGEN,URINE <=1.0 mg/dL (<=1.0)
[2024-06-14 07:11] LABS: BACTERIA,URINE None Seen /HPF (None Seen); RBC,URINE None Seen /HPF (0-2); SQUAMOUS EPITHELIAL CELL,UR Few /LPF (None Seen); WBC,URINE None Seen /HPF (0-5)
[2024-06-14 07:40] LABS: BASOPHILS % (AUTO) 0.3 % (0.0-2.0); EOSINOPHILS % (AUTO) 0.1 % (1.0-6.0); HEMATOCRIT 49.5 % (41-53); HEMOGLOBIN 16.1 g/dL (13.5-17.5); LYMPHOCYTES # (AUTO) 0.8 K/uL (1.0-4.8); MEAN CORPUSCULAR HGB CONC 32.6 G/dL (31.0-37.0); MEAN CORPUSCULAR VOLUME 95 fL (80-100); MONOCYTES # (AUTO) 1.3 K/uL (0.1-1.0); MONOCYTES % (AUTO) 9.5 % (2.0-9.0); NEUTROPHILS # (AUTO) 11.8 K/uL (1.8-7.7); NEUTROPHILS % (AUTO) 84.1 % (40.0-70.0); PLATELET COUNT (AUTO) 169 K/uL (150-450); RED CELL DISTRIBUTION WIDTH 13.6 % (11.5-14.5)
[2024-06-14 08:08] LABS: ANION GAP 6 mmol/L (8-16); CALCIUM, TOTAL 7.7 mg/dL (8.8-10.5); CARBON DIOXIDE 22 mmol/L (22-29); CHLORIDE 102 mmol/L (98-107); CREATININE 0.81 mg/dL (0.60-1.30); GLOMERULAR FILTR. RATE CALC > 60 mL/min (>60); GLUCOSE,RANDOM 138 mg/dL (70-110); POTASSIUM 3.6 mmol/L (3.5-5.1); SODIUM SERUM 130 mmol/L (136-145); UREA NITROGEN, BLOOD 26 mg/dL (7-18)
[2024-06-14] MEDS: SODIUM CHLORIDE 0.9% 1,000 ML IV ONE (09:06)
[2024-06-14] MEDS: OSELTAMIVIR PHOSPHATE 75 MG CAPSULE PO SCH (10:11)
[2024-06-14 11:51] LABS: GLUCOMETER DEV NAME(LOC) 5N.1D; GLUCOSE,POINT OF CARE 161 MG/DL (70-110)
[2024-06-14 12:00] VITALS: BP 126/73; PULSE 18; RESP 18; TEMP 98.6; O2SAT 95
[2024-06-14 13:08] LABS: C.DIFF GDH ANTIGEN, Stool Negative (Negative); C.DIFF TOXINS A&B, Stool Negative (Negative)
[2024-06-14] MEDS: AZITHROMYCIN 500 MG/NS 250 ML IV SCH (15:44)
[2024-06-14] MEDS: CefTRIAXone 1 GM/DEXTROSE 50 ML IV SCH (15:44)
[2024-06-14 16:00] VITALS: BP 121/74; PULSE 18; RESP 18; TEMP 98.6; O2SAT 96
[2024-06-14 16:51] LABS: GLUCOMETER DEV NAME(LOC) 5S.2D; GLUCOSE,POINT OF CARE 133 MG/DL (70-110)
[2024-06-14 16:51] LABS: GLUCOMETER DEV NAME(LOC) 5S.2D; GLUCOSE,POINT OF CARE 146 MG/DL (70-110)
[2024-06-14 20:00] VITALS: BP 134/74; PULSE 92; RESP 20; TEMP 98.9; O2SAT 96
[2024-06-14 23:11] LABS: GLUCOMETER DEV NAME(LOC) 5N.2C; GLUCOSE,POINT OF CARE 116 MG/DL (70-110)
[2024-06-15 04:38] VITALS: BP 127/72; PULSE 94; RESP 18; TEMP 98; O2SAT 94
[2024-06-15 08:29] VITALS: BP 141/96; PULSE 89; RESP 16; TEMP 98; O2SAT 96
[2024-06-15 09:01] LABS: BASOPHILS % (AUTO) 0.4 % (0.0-2.0); EOSINOPHILS % (AUTO) 0.8 % (1.0-6.0); HEMATOCRIT 47.5 % (41-53); LYMPHOCYTES # (AUTO) 1.7 K/uL (1.0-4.8); LYMPHOCYTES % (AUTO) 17.4 % (22.0-44.0); MEAN CORPUSCULAR HEMOGLOBIN 31.4 pg (26.0-34.0); MEAN CORPUSCULAR HGB CONC 33.6 G/dL (31.0-37.0); MEAN CORPUSCULAR VOLUME 93 fL (80-100); MONOCYTES # (AUTO) 1.5 K/uL (0.1-1.0); MONOCYTES % (AUTO) 14.9 % (2.0-9.0); NEUTROPHILS # (AUTO) 6.7 K/uL (1.8-7.7); NEUTROPHILS % (AUTO) 66.5 % (40.0-70.0); PLATELET COUNT (AUTO) 157 K/uL (150-450); RED BLOOD CELL COUNT(AUTO) 5.08 MIL/uL (4.50-5.90); RED CELL DISTRIBUTION WIDTH 13.2 % (11.5-14.5)
[2024-06-15 09:20] LABS: ANION GAP 8 mmol/L (8-16); CALCIUM, TOTAL 7.5 mg/dL (8.8-10.5); CARBON DIOXIDE 24 mmol/L (22-29); CHLORIDE 102 mmol/L (98-107); CREATININE 0.54 mg/dL (0.60-1.30); GLOMERULAR FILTR. RATE CALC > 60 mL/min (>60); GLUCOSE,RANDOM 155 mg/dL (70-110); POTASSIUM 3.5 mmol/L (3.5-5.1); SODIUM SERUM 134 mmol/L (136-145); UREA NITROGEN, BLOOD 15 mg/dL (7-18)
[2024-06-15 11:26] LABS: GLUCOMETER DEV NAME(LOC) 5N.2C; GLUCOSE,POINT OF CARE 122 MG/DL (70-110)
[2024-06-15 11:30] LABS: GLUCOMETER DEV NAME(LOC) 5S.2D; GLUCOSE,POINT OF CARE 130 MG/DL (70-110)
[2024-06-15] MEDS ORDERED: METR500 PO (12:08)
[2024-06-15] MEDS ORDERED: LEVO-72 PO (12:08)
[2024-06-15] MEDS ORDERED: OSEL75CA45 PO (12:08)
[2024-06-15 12:09] VITALS: BP 147/98; PULSE 83; RESP 19; TEMP 97.7; O2SAT 96
== END 2024-06-15 12:30 | disposition home or self-care (01) | DRG 720 ==
LOC: EMS 13:35 → EDH 15:58 → 5S 21:13
PROVIDERS: ADMIT Internal Medicine; ATTEND Internal Medicine
DX: A41.9 Sepsis, unspecified organism (principal); J96.01 Acute respiratory failure with hypoxia; J11.00 Influenza due to unidentified influenza virus with unspecified type of pneumonia; J44.0 Chronic obstructive pulmonary disease with (acute) lower respiratory infection; J44.1 Chronic obstructive pulmonary disease with (acute) exacerbation; J45.901 Unspecified asthma with (acute) exacerbation; Z20.822 Contact with and (suspected) exposure to COVID-19; Z68.37 Body mass index [BMI] 37.0-37.9, adult; E11.65 Type 2 diabetes mellitus with hyperglycemia; I10 Essential (primary) hypertension; E66.01 Morbid (severe) obesity due to excess calories; F32.A Depression, unspecified; G40.909 Epilepsy, unspecified, not intractable, without status epilepticus; K52.89 Other specified noninfective gastroenteritis and colitis; Z87.820 Personal history of traumatic brain injury; Z87.891 Personal history of nicotine dependence; Z88.2 Allergy status to sulfonamides; K52.9 Noninfective gastroenteritis and colitis, unspecified
CPT/HCPCS: 71045; 80048; 80076; 81001; 82040; 82271; 82962; 83036; 83605; 83690; 83735; 83880; 84100; 84300; 84484; 85025; 85610; 85730; 86850; 86900; 86901; 87040; 87045; 87324; 87449; 87804; 89055; 93005; 94640; 99291; J0131; J0456; J0696; J1644; J2405; J3475; J3490; J7030; J7050; J7060; J7120; 36415-L1; 36415-TC

== ENCOUNTER 2024-07-29 16:31 | Emergency (ER) | payer OTHER ==
[~2024-07-29] VITALS: Ht 180.3 cm; Wt 100.0 kg
[~2024-07-29 16:31] MED LIST changes: +LEVO-72 PO; +METR500 PO; +OSEL75CA45 PO
[2024-07-29 16:43] VITALS: BP 133/75; PULSE 88; RESP 18; TEMP 98.3; O2SAT 96
[2024-07-29 17:46] LABS: BASOPHILS % (AUTO) 0.4 % (0.0-2.0); EOSINOPHILS % (AUTO) 1.7 % (1.0-6.0); HEMATOCRIT 47.2 % (41-53); LYMPHOCYTES # (AUTO) 1.9 K/uL (1.0-4.8); LYMPHOCYTES % (AUTO) 17.3 % (22.0-44.0); MEAN CORPUSCULAR HEMOGLOBIN 31.8 pg (26.0-34.0); MEAN CORPUSCULAR VOLUME 94 fL (80-100); MONOCYTES # (AUTO) 1.6 K/uL (0.1-1.0); MONOCYTES % (AUTO) 14.5 % (2.0-9.0); NEUTROPHILS # (AUTO) 7.2 K/uL (1.8-7.7); NEUTROPHILS % (AUTO) 66.1 % (40.0-70.0); PLATELET COUNT (AUTO) 230 K/uL (150-450); RED BLOOD CELL COUNT(AUTO) 5.05 MIL/uL (4.50-5.90); RED CELL DISTRIBUTION WIDTH 13.7 % (11.5-14.5)
[2024-07-29 17:47] LABS: COVID AG,FIA SOURCE NASAL SWAB
[2024-07-29 17:57] LABS: ANION GAP 9 mmol/L (8-16); CALCIUM, TOTAL 8.4 mg/dL (8.8-10.5); CARBON DIOXIDE 25 mmol/L (22-29); CHLORIDE 100 mmol/L (98-107); CREATININE 0.49 mg/dL (0.60-1.30); GLOMERULAR FILTR. RATE CALC > 60 mL/min (>60); GLUCOSE,RANDOM 118 mg/dL (70-110); POTASSIUM 4.2 mmol/L (3.5-5.1); SODIUM SERUM 134 mmol/L (136-145); UREA NITROGEN, BLOOD 11 mg/dL (7-18)
[2024-07-29 18:05] LABS: SARS-COV2 (COVID) ANTIGEN,FIA Negative (Negative)
[2024-07-29 18:06] LABS: INFLUENZA TYPE A NEGATIVE FOR TYPE A (NEGATIVE); INFLUENZA TYPE B NEGATIVE FOR TYPE B (NEGATIVE)
[2024-07-29] MEDS: KETOROLAC TROMETHAMINE 60 MG/2 ML VIAL IM ONE (18:24)
[2024-07-29] MEDS ORDERED: IBUP-1492 PO (18:43)
== END 2024-07-29 20:00 | disposition home or self-care (01) ==
LOC: EMS 16:31
DX: B34.9 Viral infection, unspecified (principal); M79.10 Myalgia, unspecified site; R42 Dizziness and giddiness; J44.9 Chronic obstructive pulmonary disease, unspecified; E11.9 Type 2 diabetes mellitus without complications; I10 Essential (primary) hypertension; Z88.2 Allergy status to sulfonamides; Z79.899 Other long term (current) drug therapy; Z20.822 Contact with and (suspected) exposure to COVID-19
CPT/HCPCS: 99283; 87426; 80048; 85025; 87804; 36415; 96372; J1885

== ENCOUNTER 2024-10-22 12:29 | Emergency (ER) | payer OTHER ==
[~2024-10-22] VITALS: Ht 180.3 cm; Wt 90.0 kg
[~2024-10-22 12:29] MED LIST changes: +ACET-2247 PO; +ACET104 NEB; +ALBU2.5V39 NEB; +APIX2.5T PO; +BISA10SU11 PR; +DEXT15DR28 OU; +DOCU-385 PO; +FLUC100T68 PO; +INSU100V SQ; +IPRA0.2S49 NEB; -LEVO-72 PO; +METO25XL PO; -METR500 PO; -OSEL75CA45 PO; -PRAZ2 PO; +QUET25TA PO; -QUET400T PO; +[UNRECOGNIZED DRUG - CODE] SQ
[2024-10-22 12:57] VITALS: TEMP 98.2
[2024-10-22 13:35] VITALS: BP 135/81; PULSE 74; RESP 18; O2SAT 98
== END 2024-10-22 13:44 | disposition home or self-care (01) ==
LOC: EMS 12:34
DX: Z46.6 Encounter for fitting and adjustment of urinary device (principal); N28.9 Disorder of kidney and ureter, unspecified; J44.9 Chronic obstructive pulmonary disease, unspecified; F32.A Depression, unspecified; E11.9 Type 2 diabetes mellitus without complications; I10 Essential (primary) hypertension; G89.29 Other chronic pain; F17.210 Nicotine dependence, cigarettes, uncomplicated; Z99.2 Dependence on renal dialysis; Z98.890 Other specified postprocedural states; Z88.2 Allergy status to sulfonamides; Z79.01 Long term (current) use of anticoagulants; Z79.899 Other long term (current) drug therapy
CPT/HCPCS: 99283; Z7502

== ENCOUNTER 2024-11-28 23:24 | Emergency (ER) | payer OTHER ==
[~2024-11-28] VITALS: Ht 180.3 cm; Wt 88.6 kg
[2024-11-29 01:30] VITALS: BP 152/75; PULSE 75; RESP 18; TEMP 97.805264; O2SAT 96
[2024-11-29] MEDS ORDERED: OXYC-38 PO (01:50)
== END 2024-11-29 02:32 | disposition home or self-care (01) ==
LOC: EMS 23:24
DX: M79.671 Pain in right foot (principal); G89.29 Other chronic pain; J44.9 Chronic obstructive pulmonary disease, unspecified; F32.A Depression, unspecified; E11.9 Type 2 diabetes mellitus without complications; I10 Essential (primary) hypertension; F17.210 Nicotine dependence, cigarettes, uncomplicated; Z79.01 Long term (current) use of anticoagulants; Z99.2 Dependence on renal dialysis; Z88.2 Allergy status to sulfonamides; Z79.899 Other long term (current) drug therapy
CPT/HCPCS: 99283

== ENCOUNTER 2024-12-14 16:41 | Emergency (ER) | payer OTHER ==
[~2024-12-14] VITALS: Ht 180.3 cm; Wt 91.7 kg
[~2024-12-14 16:41] MED LIST changes: +OXYC-38 PO
[2024-12-14 16:51] VITALS: TEMP 97.9
[2024-12-14 17:19] LABS: PLATELET COUNT (AUTO) 239 K/uL (150-450); RED BLOOD CELL COUNT(AUTO) 4.55 MIL/uL (4.50-5.90); RED CELL DISTRIBUTION WIDTH 14.6 % (11.5-14.5); WHITE BLOOD COUNT (AUTO) 8.9 K/uL (4.5-11.0)
[2024-12-14 17:26] LABS: CALCIUM, TOTAL 8.3 mg/dL (8.8-10.5); CREATININE 0.61 mg/dL (0.60-1.30); GLOMERULAR FILTR. RATE CALC > 60 mL/min (>60); GLUCOSE,RANDOM 84 mg/dL (70-110); SODIUM SERUM 136 mmol/L (136-145); UREA NITROGEN, BLOOD 11 mg/dL (7-18)
[2024-12-14 18:50] VITALS: BP 135/88; PULSE 84; RESP 16; O2SAT 96
== END 2024-12-14 20:00 | disposition home or self-care (01) ==
LOC: EMS 16:41
DX: M79.89 Other specified soft tissue disorders (principal); M79.604 Pain in right leg; E11.22 Type 2 diabetes mellitus with diabetic chronic kidney disease; F32.A Depression, unspecified; G89.29 Other chronic pain; R60.0 Localized edema; I12.0 Hypertensive chronic kidney disease with stage 5 chronic kidney disease or end stage renal disease; F17.210 Nicotine dependence, cigarettes, uncomplicated; N18.6 End stage renal disease; J44.9 Chronic obstructive pulmonary disease, unspecified; Z86.73 Personal history of transient ischemic attack (TIA), and cerebral infarction without residual deficits; Z86.718 Personal history of other venous thrombosis and embolism; Z99.2 Dependence on renal dialysis; Z79.01 Long term (current) use of anticoagulants; Z88.2 Allergy status to sulfonamides; Z79.899 Other long term (current) drug therapy; Z98.890 Other specified postprocedural states
CPT/HCPCS: 80048; 83880; 85025; 93971; 99284

== ENCOUNTER 2025-02-22 02:29 | Inpatient (IN) | payer OTHER ==
[~2025-02-22] VITALS: Ht 183.5 cm; Wt 90.2 kg
[2025-02-22 03:10] LABS: PLATELET COUNT (AUTO) 260 K/uL (150-450); RED BLOOD CELL COUNT(AUTO) 4.81 MIL/uL (4.50-5.90); RED CELL DISTRIBUTION WIDTH 13.7 % (11.5-14.5); WHITE BLOOD COUNT (AUTO) 8.4 K/uL (4.5-11.0)
[2025-02-22 03:14] LABS: APPEARANCE,URINE CLEAR (CLEAR); GLUCOSE, URINE (UA) >=1000 mg/dL (NEGATIVE); LEUKOCYTE ESTERASE ,URINE NEGATIVE (NEGATIVE); NITRATE,URINE NEGATIVE (NEGATIVE); OCCULT BLOOD,URINE NEGATIVE (NEGATIVE); SPECIFIC GRAVITIY, URINE 1.021 (1.003-1.030)
[2025-02-22 03:20] LABS: CALCIUM, TOTAL 8.5 mg/dL (8.8-10.5); CREATININE 0.94 mg/dL (0.60-1.30); GLOMERULAR FILTR. RATE CALC > 60 mL/min (>60); GLUCOSE,RANDOM 87 mg/dL (70-110); SODIUM SERUM 140 mmol/L (136-145); UREA NITROGEN, BLOOD 13 mg/dL (7-18)
[2025-02-22 03:24] LABS: SQUAMOUS EPITHELIAL CELL,UR Rare /LPF (None Seen)
[2025-02-22 03:25] LABS: CREATINE KINASE, TOTAL ONLY 74 U/L (39-308)
[2025-02-22 03:28] LABS: TROPONIN I-HIGH SENSITIVITY 11 ng/L (<76)
[2025-02-22] MEDS: SODIUM CHLORIDE 0.9% 1,000 ML IV ONE (03:32)
[2025-02-22] MEDS ORDERED: ONDANSETRON HCL 4 MG/2 ML VIAL IVP PRN (07:45)
[2025-02-22] MEDS ORDERED: ACETAMINOPHEN 325 MG TABLET PO PRN (07:45)
[2025-02-22 08:27] LABS: TROPONIN I-HIGH SENSITIVITY 12 ng/L (<76)
[2025-02-22] MEDS ORDERED: OXYC-490 PO (08:52)
[2025-02-22] MEDS: HEPARIN SODIUM,PORCINE 5,000 UNITS/ML VIAL SQ SCH (09:38)
[2025-02-22] MEDS: RINGERS SOLUTION,LACTATED 1,000 ML IV SCH (09:39)
[2025-02-22] MEDS: DOCUSATE SODIUM 100 MG CAPSULE PO SCH (09:41)
[2025-02-22 09:57] VITALS: BP 137/83; PULSE 84; RESP 19; TEMP 98.4; O2SAT 94
[2025-02-22] MEDS ORDERED: BISACODYL 10 MG RECTAL RECTAL SUPPOSITORY PR PRN (11:15)
[2025-02-22] MEDS ORDERED: ALBUTEROL SULFATE HFA 90 MCG/PUFF 8 GM INHALER IH PRN (11:15)
[2025-02-22 11:53] VITALS: BP 131/93; PULSE 76; RESP 18; TEMP 98.2; O2SAT 97
[2025-02-22] MEDS ORDERED: ATROPINE SULFATE 0.1 MG/ML 10 ML SYRINGE IVP PRN (15:15)
[2025-02-22 15:43] VITALS: BP 140/98; PULSE 85; RESP 18; TEMP 98.4; O2SAT 96
[2025-02-22 17:30] LABS: TROPONIN I-HIGH SENSITIVITY 13 ng/L (<76)
[2025-02-22 20:10] VITALS: BP 139/92; PULSE 80; RESP 18; TEMP 98.4; O2SAT 94
[2025-02-22] MEDS: MONTELUKAST SODIUM 10 MG TABLET PO SCH (21:37)
[2025-02-22 22:45] LABS: TROPONIN I-HIGH SENSITIVITY 14 ng/L (<76)
[2025-02-23] VITALS (12 sets, daily range): BP systolic 126–166; BP diastolic 68–95; PULSE 69–82; RESP 16–20; TEMP 97.5–98.4; O2SAT 94–96
[2025-02-23 04:11] LABS: GLUCOMETER DEV NAME(LOC) 5S.1E; GLUCOSE,POINT OF CARE 132 MG/DL (70-110)
[2025-02-23 04:12] LABS: GLUCOMETER DEV NAME(LOC) 5S.1E; GLUCOSE,POINT OF CARE 101 MG/DL (70-110)
[2025-02-23 04:12] LABS: GLUCOMETER DEV NAME(LOC) 5N.2C; GLUCOSE,POINT OF CARE 96 MG/DL (70-110)
[2025-02-23 06:58] LABS: PLATELET COUNT (AUTO) 249 K/uL (150-450); RED BLOOD CELL COUNT(AUTO) 4.81 MIL/uL (4.50-5.90); RED CELL DISTRIBUTION WIDTH 13.4 % (11.5-14.5); WHITE BLOOD COUNT (AUTO) 8.3 K/uL (4.5-11.0)
[2025-02-23 07:14] LABS: CALCIUM, TOTAL 8.5 mg/dL (8.8-10.5); CREATININE 0.51 mg/dL (0.60-1.30); GLOMERULAR FILTR. RATE CALC > 60 mL/min (>60); GLUCOSE,RANDOM 93 mg/dL (70-110); SODIUM SERUM 138 mmol/L (136-145); UREA NITROGEN, BLOOD 14 mg/dL (7-18)
[2025-02-23] MEDS: ATORVASTATIN CALCIUM 40 MG TABLET PO SCH (08:01)
[2025-02-23 12:31] LABS: GLUCOMETER DEV NAME(LOC) 5N.2C; GLUCOSE,POINT OF CARE 97 MG/DL (70-110)
[2025-02-23 12:31] LABS: GLUCOMETER DEV NAME(LOC) 5S.1E; GLUCOSE,POINT OF CARE 102 MG/DL (70-110)
[2025-02-23] MEDS: LOSARTAN POTASSIUM 25 MG TABLET PO SCH (16:18)
[2025-02-24 04:02] VITALS: BP 133/77; PULSE 69; RESP 18; TEMP 97.9; O2SAT 95
[2025-02-24 07:07] VITALS: BP 126/88; PULSE 84; RESP 18; TEMP 97.5; O2SAT 96
[2025-02-24 11:18] VITALS: BP 140/92; PULSE 74; RESP 18; TEMP 98.6; O2SAT 95
[2025-02-24] MEDS ORDERED: IPRATROPIUM BROMIDE 0.5 MG/2.5 ML NEB SOLUTION NEB PRN (11:30)
[2025-02-24] MEDS ORDERED: HYDROCODONE/ACETAMINOPHEN 5-325 MG TABLET PO PRN (11:30)
[2025-02-24] MEDS ORDERED: ZOLPIDEM TARTRATE 5 MG TABLET PO PRN (11:30)
[2025-02-24] MEDS ORDERED: MORPHINE SULFATE 4 MG/ML SYRINGE IVP PRN (11:30)
[2025-02-24] MEDS ORDERED: BISACODYL 10 MG RECTAL RECTAL SUPPOSITORY PR PRN (11:30)
[2025-02-24] MEDS ORDERED: MAGNESIUM HYDROXIDE SUSPENSION 30 ML UDCUP PO PRN (11:30)
[2025-02-24] MEDS ORDERED: ALBUTEROL SULFATE 2.5 MG/0.5 ML NEB SOLUTION NEB PRN (11:30)
[2025-02-24] MEDS ORDERED: LOSA-417 PO (11:55)
[2025-02-24 12:25] LABS: GLUCOMETER DEV NAME(LOC) 5N.2C; GLUCOSE,POINT OF CARE 87 MG/DL (70-110)
[2025-02-24 12:26] LABS: GLUCOMETER DEV NAME(LOC) 5N.2C; GLUCOSE,POINT OF CARE 105 MG/DL (70-110)
[2025-02-24 12:26] LABS: GLUCOMETER DEV NAME(LOC) 5N.2C; GLUCOSE,POINT OF CARE 115 MG/DL (70-110)
[2025-02-24 12:26] LABS: GLUCOMETER DEV NAME(LOC) 5N.2C; GLUCOSE,POINT OF CARE 105 MG/DL (70-110)
[2025-02-24] MEDS: INFLUENZA VIRUS VACCINE TVS (6MO+) 2025-26/PF 45 MCG/0.5 ML SYRINGE IM. ONE (13:10)
[2025-02-25] MEDS ORDERED: PANTOPRAZOLE SODIUM 40 MG DR TABLET PO SCH (09:00)
[2025-03-01] MEDS ORDERED: DULAGLUTIDE 4.5 MG SQ SCH (09:00)
== END 2025-02-24 13:35 | disposition home or self-care (01) | DRG 48 ==
LOC: EMS 02:29 → EDH 06:50 → 5S 08:20
PROVIDERS: ADMIT Internal Medicine; ATTEND Internal Medicine
DX: G90.89 Other disorders of autonomic nervous system (principal); I44.1 Atrioventricular block, second degree; E87.3 Alkalosis; E11.9 Type 2 diabetes mellitus without complications; I10 Essential (primary) hypertension; E78.5 Hyperlipidemia, unspecified; I49.8 Other specified cardiac arrhythmias; R00.1 Bradycardia, unspecified; J44.9 Chronic obstructive pulmonary disease, unspecified; G40.909 Epilepsy, unspecified, not intractable, without status epilepticus; F32.A Depression, unspecified; F17.210 Nicotine dependence, cigarettes, uncomplicated; Z82.49 Family history of ischemic heart disease and other diseases of the circulatory system; Z79.899 Other long term (current) drug therapy; Z86.73 Personal history of transient ischemic attack (TIA), and cerebral infarction without residual deficits; Z88.2 Allergy status to sulfonamides; G47.33 Obstructive sleep apnea (adult) (pediatric)
CPT/HCPCS: 70450; 71045; 80048; 81001; 81003; 82550; 82962; 83735; 83880; 84443; 84484; 85025; 90686; 93005; 93306; 97116; 97163; 99285; J1644; 36415-L1; 36415-TC; G0008